=== PATIENT | female | born 2000 | race Caucasian/White ===

== ENCOUNTER 2021-07-16 10:10 | Inpatient (IN) | payer MEDICAID ==
[~2021-07-16] VITALS: Ht 162.6 cm; Wt 97.1 kg
[2021-07-16] MEDS ORDERED: LIDOCAINE HCL 1% 20ML VIAL (Pyxis) INJ INFIL SCH ×2 (11:45→20:30)
[2021-07-16] MEDS ORDERED: RHO(D) IMMUNE GLOBULIN 300 MCG/SYR IM SCH (11:45)
[2021-07-16] MEDS ORDERED: DEXT 5%/LR + PITOCIN 20UNITS/L 1,000 ML IV SCH (11:45)
[2021-07-16 12:17] LABS: BASOPHILS % 0.3 % (0.0-2.0); EOSINOPHILS % 0.6 % (0.0-5.0); HEMATOCRIT. 33.9 % (36.0-48.0); HEMOGLOBIN. 11.8 g/dL (12.0-16.0); MEAN CORPUSCULAR HEMOGLOBIN 29.5 pg (28.0-32.0); MEAN CORPUSCULAR VOLUME 84.9 fL (81.0-99.0); MEAN PLATELET VOLUME 10.4 fl (7.4-10.4); MONOCYTES % 9.7 % (2.0-8.0); NEUTROPHILS % 67.4 % (40.0-76.0); PLATELET 165 x1000/uL (130-400); RED CELL DISTRIBUTION WIDTH 14.5 % (11.6-14.6)
[2021-07-16 12:24] LABS: CLARITY URINE CLEAR (CLEAR); COLOR URINE YELLOW (YELLOW); KETONES URINE NEGATIVE (NEGATIVE); LEUKOCYTE ESTERASE URINE NEGATIVE (NEGATIVE); NITRITE URINE NEGATIVE (NEGATIVE); OCCULT BLOOD URINE TRACE (NEGATIVE); PROTEIN URINE NEGATIVE (NEGATIVE); SPECIFIC GRAVITY URINE 1.012 (1.005-1.030); UROBILINOGEN URINE 0.2 E.U./dL (0.2-1.0)
[2021-07-16 12:30] LABS: INR 0.9; PARTIAL THROMBOPLASTIN TIME 27.1 sec (23.4-31.0); PROTHROMBIN TIME 10.2 sec (9.6-11.0)
[2021-07-16 12:45] LABS: *AMPHETAMINES SCREEN URINE NEGATIVE (NEGATIVE); *BARBITURATES SCREEN URINE NEGATIVE (NEGATIVE); *BENZODIAZEPINES SCREEN URINE NEGATIVE (NEGATIVE); *COCAINE SCREEN URINE NEGATIVE (NEGATIVE)
[2021-07-16] MEDS ORDERED: ROPIVACAINE HCL/PF EPIDURAL 200 ML EP SCH (12:45)
[2021-07-16 12:47] LABS: CANNABINOID URINE SCREEN NEGATIVE (NEGATIVE); METHADONE URINE SCREEN NEGATIVE (NEGATIVE); OPIATES URINE SCREEN NEGATIVE (NEGATIVE); PHENCYCLIDINE URINE SCREEN NEGATIVE (NEGATIVE)
[2021-07-16 12:57] LABS: HEPATITIS B SURFACE ANTIGEN NEGATIVE
[2021-07-16] MEDS ORDERED: CARBOPROST TROMETHAMINE 250 MCG/ML AMPUL IM PRN (20:30)
[2021-07-16] MEDS ORDERED: METHYLERGONOVINE MALEATE 0.2 MG/ML IM PRN (20:30)
[2021-07-16] MEDS ORDERED: NALOXONE HCL 0.4 MG/ML 1ML VIAL IM PRN (20:30)
[2021-07-16] MEDS ORDERED: BUTORPHANOL TARTRATE 2 MG/ML VIAL IV PRN (20:30)
[2021-07-17] MEDS: LACTATED RINGERS 1,000 ML IV SCH ×4 (03:16→18:18)
[2021-07-17] MEDS ORDERED: ROPIVACAINE HCL/PF EPIDURAL 200 ML EPI ONE (08:22)
[2021-07-17] MEDS ORDERED: METHYLERGONOVINE MALEATE 0.2 MG/ML ONE (08:28)
[2021-07-17] MEDS ORDERED: ACETAMINOPHEN 325MG TABLET PO PRN (16:00)
[2021-07-17] MEDS ORDERED: BUTORPHANOL TARTRATE 2 MG/ML VIAL IV PRN (16:00)
[2021-07-17] MEDS ORDERED: LANOLIN OINT 7GM TUBE TOP PRN (23:15)
[2021-07-17] MEDS ORDERED: DIPHENHYDRAMINE 25MG CAPSULE PO PRN (23:15)
[2021-07-17] MEDS ORDERED: IBUPROFEN 400MG TABLET PO PRN (23:15)
[2021-07-17] MEDS ORDERED: ACETAMINOPHEN WITH CODEINE 300/30MG TABLET PO PRN (23:15)
[2021-07-17] MEDS ORDERED: BISACODYL 10MG SUPP PR PRN (23:15)
[2021-07-17] MEDS ORDERED: GLYCERIN/WITCH HAZEL LEAF MEDICATED PAD TOP PRN (23:15)
[2021-07-17] MEDS ORDERED: HEMORRHOIDAL SUPP PR PRN (23:15)
[2021-07-18] MEDS: IBUPROFEN 800MG TABLET PO PRN ×2 (01:18→14:05)
[2021-07-18] MEDS: DEXT 5%/LR + PITOCIN 20UNITS/L 1,000 ML IV SCH ×2 (01:19→08:26)
[2021-07-18 01:30] VITALS: BP 122/59
[2021-07-18 02:15] VITALS: BP 126/55
[2021-07-18 04:00] VITALS: BP 102/55
[2021-07-18 05:51] LABS: HEMATOCRIT. 31.2 % (36.0-48.0); HEMOGLOBIN. 10.5 g/dL (12.0-16.0); MEAN CORPUSCULAR HEMOGLOBIN 29.2 pg (28.0-32.0); MEAN CORPUSCULAR VOLUME 86.8 fL (81.0-99.0); MEAN PLATELET VOLUME 10.4 fl (7.4-10.4); PLATELET 156 x1000/uL (130-400); RED CELL DISTRIBUTION WIDTH 14.5 % (11.6-14.6)
[2021-07-18 08:15] VITALS: BP 93/47
[2021-07-18] MEDS: AMPICILLIN 2,000 MG in SODIUM CHLORIDE 0.9% 100 ML IV SCH ×3 (08:26→19:56)
[2021-07-18] MEDS: MAGNESIUM/ALUMINUM HYDROXIDE/SIMETHICONE 30ML UDC PO SCH ×4 (08:27→21:00)
[2021-07-18] MEDS: FERROUS SULFATE 325MG TABLET PO SCH ×3 (08:27→17:31)
[2021-07-18] MEDS: SIMETHICONE 80MG TABLET CHEW PO SCH ×4 (08:27→21:15)
[2021-07-18] MEDS ORDERED: PRENATAL VIT/FE FUMARATE/FA TABLET PO SCH (09:00)
[2021-07-18] MEDS ORDERED: GENTAMICIN SULFATE 140 MG in SODIUM CHLORIDE 0.9% 50 ML IV NR (09:00)
[2021-07-18 09:27] LABS: CHLORIDE 110 mEq/L (98-107)
[2021-07-18 15:14] VITALS: BP 105/62
[2021-07-18 18:40] LABS: PLATELET ESTIMATE NORMAL
[2021-07-18] MEDS ORDERED: GENTAMICIN 100MG PREMIX 50 ML IV SCH (21:00)
[2021-07-18] MEDS ORDERED: DOCUSATE SODIUM 100MG CAPSULE PO SCH (21:00)
[2021-07-18 22:00] VITALS: BP 103/60
[2021-07-19] MEDS: AMPICILLIN 2,000 MG in SODIUM CHLORIDE 0.9% 100 ML IV SCH (02:02)
[2021-07-19 05:30] VITALS: BP 112/61
[2021-07-19] MEDS ORDERED: IBUP-2030 PO (06:33)
[2021-07-19 07:04] LABS: BASOPHILS % 0.3 % (0.0-2.0); EOSINOPHILS % 0.8 % (0.0-5.0); HEMATOCRIT. 25.3 % (36.0-48.0); HEMOGLOBIN. 8.6 g/dL (12.0-16.0); LYMPHOCYTES % 13.2 % (20.0-50.0); MEAN CORPUSCULAR HEMOGLOBIN 29.8 pg (28.0-32.0); MEAN CORPUSCULAR VOLUME 87.9 fL (81.0-99.0); MEAN PLATELET VOLUME 10.4 fl (7.4-10.4); NEUTROPHILS % 79.7 % (40.0-76.0); PLATELET 137 x1000/uL (130-400); RED BLOOD CELL COUNT 2.88 mill/uL (4.2-5.4)
[2021-07-19 08:00] VITALS: BP 114/66
== END 2021-07-19 11:30 | disposition home or self-care (01) | DRG 560 ==
LOC: OBSVTOIN 10:10 → 8 EST LDRP 10:10 → 8EST 07-18 01:25
PROVIDERS: ADMIT Obstetrics & Gynecology; ATTEND Obstetrics & Gynecology
PROC: 10E0XZZ Delivery of Products of Conception, External Approach (ICD-10-PCS; principal; 2021-07-16)
PROC: 3E0R3BZ Introduction of Anesthetic Agent into Spinal Canal, Percutaneous Approach (ICD-10-PCS; 2021-07-16)
PROC: 00HU33Z Insertion of Infusion Device into Spinal Canal, Percutaneous Approach (ICD-10-PCS; 2021-07-16)
DX: O80 Encounter for full-term uncomplicated delivery (principal); Z37.0 Single live birth; Z3A.39 39 weeks gestation of pregnancy
CPT/HCPCS: 36415; 76805; 76818; 80048; 80305; 81003; 85025; 86592; 86703; 86762; 86850; 86900; 87340; 87426; 99281; J0290; J0595; J1580; J2210; J2590; J2795; J3490; J7050; J7120